=== PATIENT | female | born 1950 | race Asian ===

== ENCOUNTER 2020-09-11 08:29 | Emergency (ER) | payer OTHER ==
[2020-09-11 09:00] VITALS: TEMP 97.8; BMI 25.6
[2020-09-11] MEDS ORDERED: ACETAMINOPHEN 500 MG TABLET (FP) PO ONE (09:32)
[2020-09-11] MEDS ORDERED: ACETAMINOPHEN 500 MG TABLET (FP) ONE (09:41)
[2020-09-11 10:07] VITALS: BP 147/86; PULSE 77
[2020-09-11] MEDS ORDERED: LIDOCAINE 5% TOPICAL PATCH TP ONE (10:47)
[2020-09-11] MEDS ORDERED: METHOCARBAMOL 500 MG TABLET PO ONE (10:47)
[2020-09-11] MEDS ORDERED: LIDOCAINE 5% TOPICAL PATCH ONE (10:50)
[2020-09-11] MEDS ORDERED: METHOCARBAMOL 500 MG TABLET ONE (10:50)
[2020-09-11] MEDS ORDERED: LIDOCAINE PATCH REMOVAL MC ONE (22:00)
== END 2020-09-11 11:48 | disposition home or self-care (01) ==
LOC: JER 08:29
DX: M62.830 Muscle spasm of back (principal); M54.5 Low back pain
CPT/HCPCS: 82962; 93005; 93010; 99285-25

== ENCOUNTER 2021-10-24 16:20 | Inpatient (IN) | payer OTHER ==
[2021-10-24 17:15] VITALS: BMI 25.9
[2021-10-24] MEDS ORDERED: LACTATED RINGERS SOLUTION 1000 ML INFUS.BAG IV ONE (19:16)
[2021-10-24 20:08] LABS: BASO % 0.2 % (0-2.0); HEMATOCRIT 37.4 % (32.4-45.2); HEMOGLOBIN 12.6 GM/dL (10.7-15.3); LYMPH % 11.7 % (8-40); MCH 29.9 pg (25.7-33.7); MCHC 33.6 g/dl (32.0-36.0); MEAN CELL VOLUME 88.9 fl (80-96); MEAN PLT VOLUME 10.3 fl (7.5-11.1); MONO % 5.7 % (3.8-10.2); NEUT % 82.4 % (42.8-82.8); PLATELET COUNT 96 10^3/uL (134-434); RBC 4.21 M/mm3 (3.60-5.2); RDW 14.2 % (11.6-15.6); WHITE BLOOD COUNT 3.3 K/mm3 (4.0-10.0)
[2021-10-24 20:22] LABS: VENOUS BASE EXCESS -0.3 mmol/L (-2-2); VENOUS O2 SATURATION 44.9 % (70-80); VENOUS PCO2 38.3 mmHg (38-52); VENOUS PH 7.416 (7.310-7.410)
[2021-10-24 20:29] LABS: CHLORIDE 96 mmol/L (98-107); SODIUM 123 mmol/L (136-145)
[2021-10-24 20:32] LABS: CALCIUM 8.6 mg/dL (8.5-10.1)
[2021-10-24 20:33] LABS: ALBUMIN 3.1 g/dl (3.4-5.0); BLOOD UREA NITROGEN 15.5 mg/dL (7-18); CO2 25 mmol/L (21-32); GLUCOSE,RANDOM 192 mg/dL (74-106)
[2021-10-24 20:36] LABS: CREATININE 0.9 mg/dL (0.55-1.3); SGOT/AST 140 U/L (15-37)
[2021-10-24 20:37] LABS: BILIRUBIN,TOTAL 1.2 mg/dL (0.2-1); TOT PROT 7.7 g/dl (6.4-8.2)
[2021-10-24 20:39] LABS: ALK PHOS 166 U/L (45-117)
[2021-10-24 20:44] LABS: ANION GAP 2 MMOL/L (8-16); SGPT/ALT 81 U/L (13-61)
[2021-10-24] MEDS: SODIUM CHLORIDE 1,000 ML IV SCH (21:40)
[2021-10-24 22:03] LABS: BLOOD UREA NITROGEN 13.4 mg/dL (7-18); CALCIUM 8.2 mg/dL (8.5-10.1)
[2021-10-24 22:07] LABS: CREATININE 0.8 mg/dL (0.55-1.3)
[2021-10-24] MEDS ORDERED: POLYETHYLENE GLYCOL (HEALTHYLAX) 3350 17 GM PACKET PO PRN (23:03)
[2021-10-24] MEDS ORDERED: ACETAMINOPHEN 325 MG TABLET (FP) PO PRN (23:03)
[2021-10-25] MEDS ORDERED: morphine CARPU-JECT 2 MG/1 ML DISP.SYRIN IVPUSH PRN (05:29)
[2021-10-25] MEDS ORDERED: ACETAMINOPHEN 325 MG TABLET (FP) PO PRN (05:30)
[2021-10-25] MEDS: INSULIN SLIDING SCALE (NOVOLOG) 1 VIAL SQ SCH ×4 (06:30→21:16)
[2021-10-25] MEDS ORDERED: LEVOTHYROXINE NA 75 MCG TABLET (FP) ONE ×2 (06:32→08:10)
[2021-10-25 07:54] LABS: HEMATOCRIT 34.4 % (32.4-45.2); HEMOGLOBIN 11.5 GM/dL (10.7-15.3); MCH 29.9 pg (25.7-33.7); MCHC 33.4 g/dl (32.0-36.0); MEAN CELL VOLUME 89.6 fl (80-96); MEAN PLT VOLUME 10.1 fl (7.5-11.1); PLATELET COUNT 66 10^3/uL (134-434); RBC 3.84 M/mm3 (3.60-5.2); RDW 13.4 % (11.6-15.6); WHITE BLOOD COUNT 3.2 K/mm3 (4.0-10.0)
[2021-10-25] MEDS ORDERED: ACETAMINOPHEN 1000 MG/100 ML BAG IVPB ONE (08:00)
[2021-10-25] MEDS ORDERED: metFORMIN HCL 500 MG TABLET (FP) ONE (08:09)
[2021-10-25] MEDS ORDERED: ACETAMINOPHEN INJECTION 100 ML IVPB ONE (08:11)
[2021-10-25 08:17] LABS: ACTIVATED PTT 31.9 SECONDS (25.2-36.5)
[2021-10-25 08:18] LABS: INR 1.41 (0.83-1.09); PROTHROMBIN TIME (PATIENT) 16.3 SEC (9.7-13.0)
[2021-10-25 08:20] LABS: CALCIUM 8.1 mg/dL (8.5-10.1)
[2021-10-25 08:21] LABS: ALBUMIN 2.9 g/dl (3.4-5.0)
[2021-10-25] MEDS: metFORMIN HCL 500 MG TABLET (FP) PO SCH (08:22)
[2021-10-25] MEDS: LEVOTHYROXINE NA 150 MCG TABLET PO SCH (08:23)
[2021-10-25 08:24] LABS: CREATININE 0.9 mg/dL (0.55-1.3); PHOSPHOROUS 2.3 mg/dL (2.5-4.9)
[2021-10-25 08:25] LABS: TOT PROT 6.5 g/dl (6.4-8.2)
[2021-10-25 08:26] LABS: BILIRUBIN,TOTAL 0.8 mg/dL (0.2-1)
[2021-10-25 09:18] LABS: ANISOCYTOSIS 0; HELMET CELLS 0; HOWELL-JOLLY BODIES 0; MACROCYTOSIS 0; OVALOCYTE 0; ROULEAU 0; SICKELED CELLS 0; TARGET CELLS 0; TEAR DROP CELLS 0; TOXIC GRANULATION 0
[2021-10-25 09:33] LABS: ARTERIAL BLOOD GAS BASE EXCESS 0.6 mmol/L (-2-2); ARTERIAL BLOOD GAS PO2 58.6 mmHg (80-100); ARTERIAL BLOOD GAS pH 7.503 (7.350-7.450)
[2021-10-25 09:34] LABS: ALLENS TEST POSITIVE
[2021-10-25] MEDS ORDERED: amLODIPine BESYLATE 5 MG TABLET (FP) ONE (10:02)
[2021-10-25] MEDS ORDERED: ENOXAPARIN NA (PORCINE) 40 MG/0.4 ML DISP.SYRIN SQ ONE (10:02)
[2021-10-25 10:06] LABS: EPI CELLS 31 /uL (0-25.1); HYALINE CASTS 8 /uL (0-3.1); PH,URINE 5.5 (5.0-8.0); URINE APPEARANCE CLOUDY; URINE BACTERIA 591 /uL (0-1359); URINE BILIRUBIN 1+ (NEGATIVE); URINE COLOR DK YELLOW; URINE GLUCOSE (UA) NEGATIVE (NEGATIVE); URINE KETONE 1+ (NEGATIVE); URINE LEUK ESTERASE 2+ (NEGATIVE); URINE NITRITE NEGATIVE (NEGATIVE); URINE PROTEIN 3+ (NEGATIVE); URINE RBC 12 /uL (0-23.9); URINE WBC 229 /uL (0-25.8)
[2021-10-25] MEDS: ENOXAPARIN NA (PORCINE) 40 MG/0.4 ML DISP.SYRIN SQ SCH (10:22)
[2021-10-25] MEDS: amLODIPine BESYLATE 5 MG TABLET (FP) PO SCH (10:36)
[2021-10-25] MEDS ORDERED: CEFTRIAXONE 1 GM/50 ML BAG ONE (16:10)
[2021-10-25] MEDS: CEFTRIAXONE 1 GM in DEXTROSE 5%-WATER - 50 ML IVPB SCH (16:21)
[2021-10-25] MEDS: AZITHROMYCIN IVPB 500 MG/250 ML BAG IVPB SCH (20:50)
[2021-10-25] MEDS: SODIUM CHLORIDE 1,000 ML IV SCH (20:53)
[2021-10-25] MEDS: ATORVASTATIN CA 10 MG TABLET (FP) PO SCH (21:16)
[2021-10-25] MEDS ORDERED: DOXYCYCLINE HYCLATE 100 MG VIAL ONE (22:22)
[2021-10-25] MEDS ORDERED: DEXTROSE 5%-WATER 100 ML IVPB ONE (22:22)
[2021-10-25] MEDS: DOXYCYCLINE INJECTION 100 MG in DEXTROSE 5%-WATER 100 ML IVPB SCH (23:00)
[2021-10-26] MEDS ORDERED: ACETAMINOPHEN 1000 MG/100 ML BAG IVPB ONE (02:30)
[2021-10-26] MEDS ORDERED: ACETAMINOPHEN INJECTION 100 ML IVPB ONE (02:33)
[2021-10-26 05:59] LABS: ARTERIAL BLD GAS O2 SATURATION 98.1 % (95-98); ARTERIAL BLOOD GAS BASE EXCESS -2.6 mmol/L (-2-2); ARTERIAL BLOOD GAS PO2 103.2 mmHg (80-100); ARTERIAL BLOOD GAS pH 7.466 (7.350-7.450)
[2021-10-26 06:02] LABS: ALLENS TEST POSITIVE
[2021-10-26] MEDS ORDERED: ACETAMINOPHEN 1000 MG/100 ML BAG IVPB PRN (06:42)
[2021-10-26] MEDS: LEVOTHYROXINE NA 150 MCG TABLET PO SCH (06:47)
[2021-10-26] MEDS: INSULIN SLIDING SCALE (NOVOLOG) 1 VIAL SQ SCH ×4 (06:47→22:03)
[2021-10-26] MEDS: metFORMIN HCL 500 MG TABLET (FP) PO SCH (06:47)
[2021-10-26 08:26] LABS: HEMATOCRIT 32.1 % (32.4-45.2); HEMOGLOBIN 10.9 GM/dL (10.7-15.3); MCH 30.3 pg (25.7-33.7); MCHC 33.9 g/dl (32.0-36.0); MEAN CELL VOLUME 89.3 fl (80-96); MEAN PLT VOLUME 10.4 fl (7.5-11.1); PLATELET COUNT 64 10^3/uL (134-434); RDW 13.8 % (11.6-15.6)
[2021-10-26 08:50] LABS: CALCIUM 7.5 mg/dL (8.5-10.1)
[2021-10-26 08:51] LABS: ALBUMIN 2.5 g/dl (3.4-5.0); BLOOD UREA NITROGEN 20.3 mg/dL (7-18)
[2021-10-26 08:54] LABS: CREATININE 0.9 mg/dL (0.55-1.3)
[2021-10-26 08:56] LABS: BILIRUBIN,TOTAL 0.8 mg/dL (0.2-1); TOT PROT 6.1 g/dl (6.4-8.2)
[2021-10-26] MEDS ORDERED: DOXYCYCLINE HYCLATE 100 MG VIAL ONE ×3 (09:42→22:07)
[2021-10-26] MEDS ORDERED: DEXTROSE 5%-WATER 0 ML IVPB ONE (09:42)
[2021-10-26] MEDS ORDERED: cefTRIAXone SODIUM 1 GM VIAL ONE (09:43)
[2021-10-26 09:46] LABS: INR 1.27 (0.83-1.09); PROTHROMBIN TIME (PATIENT) 14.6 SEC (9.7-13.0)
[2021-10-26 09:48] LABS: ACTIVATED PTT 33.7 SECONDS (25.2-36.5)
[2021-10-26 09:52] LABS: ANISOCYTOSIS 0; HELMET CELLS 0; HOWELL-JOLLY BODIES 0; MACROCYTOSIS 0; OVALOCYTE 0; ROULEAU 0; SICKELED CELLS 0; TARGET CELLS 0; TEAR DROP CELLS 0; TOXIC GRANULATION 0
[2021-10-26] MEDS: amLODIPine BESYLATE 5 MG TABLET (FP) PO SCH (10:05)
[2021-10-26] MEDS: DOXYCYCLINE INJECTION 100 MG in DEXTROSE 5%-WATER 100 ML IVPB SCH ×2 (10:06→22:04)
[2021-10-26] MEDS: CEFTRIAXONE 1 GM in DEXTROSE 5%-WATER - 50 ML IVPB SCH (10:06)
[2021-10-26] MEDS: AZITHROMYCIN IVPB 500 MG/250 ML BAG IVPB SCH (10:06)
[2021-10-26] MEDS: ENOXAPARIN NA (PORCINE) 40 MG/0.4 ML DISP.SYRIN SQ SCH (10:07)
[2021-10-26] MEDS ORDERED: FUROSEMIDE 20 MG TABLET (FP) PO ONE ×2 (12:45→16:45)
[2021-10-26] MEDS ORDERED: ACETAMINOPHEN 650 MG/20.3 ML ORAL SOLUTION (CUPS) PO PRN (18:28)
[2021-10-26] MEDS ORDERED: DEXTROSE 5%-WATER 100 ML IVPB ONE ×2 (21:24→22:07)
[2021-10-26] MEDS: ATORVASTATIN CA 10 MG TABLET (FP) PO SCH (22:04)
[2021-10-27] MEDS ORDERED: FUROSEMIDE 40 MG/4 ML INJECTABLE VIAL IVPUSH ONE ×2 (00:20→12:00)
[2021-10-27] MEDS: metFORMIN HCL 500 MG TABLET (FP) PO SCH (06:01)
[2021-10-27] MEDS: LEVOTHYROXINE NA 150 MCG TABLET PO SCH (06:01)
[2021-10-27] MEDS: INSULIN SLIDING SCALE (NOVOLOG) 1 VIAL SQ SCH ×4 (06:02→21:47)
[2021-10-27 06:41] LABS: HEMATOCRIT 34.6 % (32.4-45.2); HEMOGLOBIN 11.8 GM/dL (10.7-15.3); MCH 30.6 pg (25.7-33.7); MEAN CELL VOLUME 90.1 fl (80-96); MEAN PLT VOLUME 10.3 fl (7.5-11.1); PLATELET COUNT 71 10^3/uL (134-434); RBC 3.84 M/mm3 (3.60-5.2); RDW 13.9 % (11.6-15.6); WHITE BLOOD COUNT 8.4 K/mm3 (4.0-10.0)
[2021-10-27 06:52] LABS: INR 1.09 (0.83-1.09); PROTHROMBIN TIME (PATIENT) 12.5 SEC (9.7-13.0)
[2021-10-27 07:04] LABS: ALBUMIN 2.3 g/dl (3.4-5.0)
[2021-10-27 07:07] LABS: BILIRUBIN,DIRECT 0.2 mg/dL (0.0-0.2)
[2021-10-27 07:09] LABS: BILIRUBIN,TOTAL 0.9 mg/dL (0.2-1); CALCIUM 7.9 mg/dL (8.5-10.1); TOT PROT 6.1 g/dl (6.4-8.2)
[2021-10-27 07:10] LABS: ALBUMIN 2.3 g/dl (3.4-5.0); BLOOD UREA NITROGEN 13.9 mg/dL (7-18)
[2021-10-27 07:12] LABS: CREATININE 0.7 mg/dL (0.55-1.3); URIC ACID 4.7 mg/dL (2.6-7.2)
[2021-10-27 07:14] LABS: BILIRUBIN,TOTAL 0.6 mg/dL (0.2-1)
[2021-10-27 09:32] LABS: N-TERMINAL BNP 1595.7 pg/ml (5-125)
[2021-10-27 09:33] LABS: ANISOCYTOSIS 1+; MACROCYTOSIS 0
[2021-10-27] MEDS ORDERED: DOXYCYCLINE HYCLATE 100 MG VIAL ONE (10:26)
[2021-10-27] MEDS ORDERED: DEXTROSE 5%-WATER 100 ML IVPB ONE (10:26)
[2021-10-27] MEDS ORDERED: cefTRIAXone SODIUM 1 GM VIAL ONE ×2 (10:28→10:30)
[2021-10-27] MEDS ORDERED: DEXTROSE 5%-WATER - 50 ML IVPB ONE (10:30)
[2021-10-27] MEDS: CEFTRIAXONE 1 GM in DEXTROSE 5%-WATER - 50 ML IVPB SCH ×2 (10:49→16:40)
[2021-10-27] MEDS: LACTOBACILLUS ACIDOPHILUS 1 TABLET PO SCH ×2 (10:49→21:42)
[2021-10-27] MEDS ORDERED: FUROSEMIDE 20 MG TABLET (FP) PO ONE (13:00)
[2021-10-27] MEDS: DOXYCYCLINE INJECTION 100 MG in DEXTROSE 5%-WATER 100 ML IVPB SCH (13:04)
[2021-10-27] MEDS: AZITHROMYCIN IVPB 500 MG/250 ML BAG IVPB SCH (13:09)
[2021-10-27 13:30] LABS: BF GLUCOSE (CSF ONLY) 83 mg/dL (40-70)
[2021-10-27 13:50] LABS: CSF APPEARANCE CLEAR (CLEAR); CSF COLOR COLORLESS (COLORLESS)
[2021-10-27 13:51] LABS: CSF WBC 1 mm3 (0-5)
[2021-10-27] MEDS: ATORVASTATIN CA 10 MG TABLET (FP) PO SCH (21:42)
[2021-10-28 07:18] LABS: HEMATOCRIT 36.7 % (32.4-45.2); HEMOGLOBIN 12.6 GM/dL (10.7-15.3); MCH 30.7 pg (25.7-33.7); MCHC 34.4 g/dl (32.0-36.0); MEAN CELL VOLUME 89.4 fl (80-96); MEAN PLT VOLUME 10.1 fl (7.5-11.1); PLATELET COUNT 122 10^3/uL (134-434); RBC 4.11 M/mm3 (3.60-5.2); RDW 14.2 % (11.6-15.6); WHITE BLOOD COUNT 9.1 K/mm3 (4.0-10.0)
[2021-10-28] MEDS: INSULIN SLIDING SCALE (NOVOLOG) 1 VIAL SQ SCH ×4 (07:37→22:13)
[2021-10-28] MEDS: LEVOTHYROXINE NA 150 MCG TABLET PO SCH (07:37)
[2021-10-28] MEDS: metFORMIN HCL 500 MG TABLET (FP) PO SCH (07:37)
[2021-10-28 07:38] LABS: CALCIUM 8.4 mg/dL (8.5-10.1)
[2021-10-28 07:39] LABS: BLOOD UREA NITROGEN 16.5 mg/dL (7-18)
[2021-10-28 07:42] LABS: CREATININE 0.8 mg/dL (0.55-1.3)
[2021-10-28 07:43] LABS: BILIRUBIN,TOTAL 0.6 mg/dL (0.2-1); TOT PROT 6.9 g/dl (6.4-8.2)
[2021-10-28 07:53] LABS: ALBUMIN 2.9 g/dl (3.4-5.0)
[2021-10-28 08:57] LABS: ANISOCYTOSIS 1+
[2021-10-28] MEDS ORDERED: cefTRIAXone SODIUM 1 GM VIAL ONE (09:38)
[2021-10-28] MEDS ORDERED: DEXTROSE 5%-WATER - 50 ML IVPB ONE (09:38)
[2021-10-28] MEDS: LACTOBACILLUS ACIDOPHILUS 1 TABLET PO SCH ×2 (09:40→22:13)
[2021-10-28] MEDS: CEFTRIAXONE 1 GM in DEXTROSE 5%-WATER - 50 ML IVPB SCH (09:40)
[2021-10-28] MEDS: AZITHROMYCIN IVPB 500 MG/250 ML BAG IVPB SCH (09:41)
[2021-10-28] MEDS ORDERED: POTASSIUM CHLORIDE TABS 20 MEQ TABLET.ER (FP) PO ONE (10:45)
[2021-10-28 16:08] LABS: DRVVT - 29.3 sec (0.0-47.0)
[2021-10-28] MEDS: ATORVASTATIN CA 10 MG TABLET (FP) PO SCH (22:13)
[2021-10-29] MEDS: INSULIN SLIDING SCALE (NOVOLOG) 1 VIAL SQ SCH ×4 (06:05→22:13)
[2021-10-29] MEDS: LEVOTHYROXINE NA 150 MCG TABLET PO SCH (06:06)
[2021-10-29] MEDS: metFORMIN HCL 500 MG TABLET (FP) PO SCH (06:06)
[2021-10-29] MEDS ORDERED: cefTRIAXone SODIUM 1 GM VIAL ONE (09:06)
[2021-10-29] MEDS ORDERED: DEXTROSE 5%-WATER - 50 ML IVPB ONE (09:06)
[2021-10-29] MEDS: AZITHROMYCIN IVPB 500 MG/250 ML BAG IVPB SCH (09:14)
[2021-10-29] MEDS: LACTOBACILLUS ACIDOPHILUS 1 TABLET PO SCH ×2 (09:14→22:13)
[2021-10-29] MEDS ORDERED: FUROSEMIDE 20 MG TABLET (FP) PO ONE (10:00)
[2021-10-29] MEDS ORDERED: POTASSIUM CHLORIDE TABS 10 MEQ TABLET.ER (FP) PO ONE (10:00)
[2021-10-29] MEDS ORDERED: POTASSIUM CHLORIDE TABS 20 MEQ TABLET.ER (FP) PO ONE ×2 (10:00→14:32)
[2021-10-29] MEDS: CEFTRIAXONE 1 GM in DEXTROSE 5%-WATER - 50 ML IVPB SCH (12:05)
[2021-10-29] MEDS: ATORVASTATIN CA 10 MG TABLET (FP) PO SCH (22:13)
[2021-10-30] MEDS: INSULIN SLIDING SCALE (NOVOLOG) 1 VIAL SQ SCH ×4 (06:02→21:28)
[2021-10-30] MEDS: LEVOTHYROXINE NA 150 MCG TABLET PO SCH (06:03)
[2021-10-30] MEDS: metFORMIN HCL 500 MG TABLET (FP) PO SCH (06:03)
[2021-10-30 07:40] LABS: HEMATOCRIT 33.9 % (32.4-45.2); HEMOGLOBIN 11.5 GM/dL (10.7-15.3); MCH 30.4 pg (25.7-33.7); MCHC 33.9 g/dl (32.0-36.0); MEAN CELL VOLUME 89.5 fl (80-96); MEAN PLT VOLUME 9.1 fl (7.5-11.1); PLATELET COUNT 297 10^3/uL (134-434); RBC 3.79 M/mm3 (3.60-5.2); RDW 14.2 % (11.6-15.6); WHITE BLOOD COUNT 10.7 K/mm3 (4.0-10.0)
[2021-10-30 07:56] LABS: BLOOD UREA NITROGEN 11.2 mg/dL (7-18); CALCIUM 8.7 mg/dL (8.5-10.1)
[2021-10-30 07:57] LABS: CREATININE 0.7 mg/dL (0.55-1.3)
[2021-10-30 09:04] LABS: ANISOCYTOSIS 1+; MACROCYTOSIS 0
[2021-10-30] MEDS ORDERED: cefTRIAXone SODIUM 1 GM VIAL ONE (09:58)
[2021-10-30] MEDS: LACTOBACILLUS ACIDOPHILUS 1 TABLET PO SCH ×3 (10:06→21:26)
[2021-10-30] MEDS: CEFTRIAXONE 1 GM in DEXTROSE 5%-WATER - 50 ML IVPB SCH (10:07)
[2021-10-30] MEDS: ATORVASTATIN CA 10 MG TABLET (FP) PO SCH (21:26)
[2021-10-31] MEDS: INSULIN SLIDING SCALE (NOVOLOG) 1 VIAL SQ SCH ×4 (06:03→21:03)
[2021-10-31] MEDS: metFORMIN HCL 500 MG TABLET (FP) PO SCH (06:03)
[2021-10-31] MEDS: LEVOTHYROXINE NA 150 MCG TABLET PO SCH (06:03)
[2021-10-31 08:16] LABS: HEMATOCRIT 33.9 % (32.4-45.2); HEMOGLOBIN 11.4 GM/dL (10.7-15.3); MCH 30.1 pg (25.7-33.7); MCHC 33.5 g/dl (32.0-36.0); MEAN CELL VOLUME 89.8 fl (80-96); PLATELET COUNT 401 10^3/uL (134-434); RBC 3.78 M/mm3 (3.60-5.2); RDW 14.8 % (11.6-15.6); WHITE BLOOD COUNT 11.3 K/mm3 (4.0-10.0)
[2021-10-31 08:17] LABS: MEAN PLT VOLUME 8.7 fl (7.5-11.1)
[2021-10-31 08:34] LABS: CALCIUM 8.8 mg/dL (8.5-10.1)
[2021-10-31 08:35] LABS: BLOOD UREA NITROGEN 11.1 mg/dL (7-18)
[2021-10-31 08:38] LABS: CREATININE 0.7 mg/dL (0.55-1.3)
[2021-10-31 08:44] LABS: ALBUMIN 3.2 g/dl (3.4-5.0)
[2021-10-31 08:47] LABS: BILIRUBIN,TOTAL 0.4 mg/dL (0.2-1); TOT PROT 7.6 g/dl (6.4-8.2)
[2021-10-31 08:48] LABS: BILIRUBIN,DIRECT 0.2 mg/dL (0.0-0.2)
[2021-10-31] MEDS ORDERED: cefTRIAXone SODIUM 1 GM VIAL ONE (09:06)
[2021-10-31] MEDS ORDERED: DEXTROSE 5%-WATER - 50 ML IVPB ONE (09:06)
[2021-10-31] MEDS: CEFTRIAXONE 1 GM in DEXTROSE 5%-WATER - 50 ML IVPB SCH (09:19)
[2021-10-31] MEDS: LACTOBACILLUS ACIDOPHILUS 1 TABLET PO SCH ×2 (09:21→21:03)
[2021-10-31 11:12] LABS: ANISOCYTOSIS 0; HELMET CELLS 0; HOWELL-JOLLY BODIES 0; MACROCYTOSIS 0; OVALOCYTE 0; ROULEAU 0; SICKELED CELLS 0; TARGET CELLS 0; TEAR DROP CELLS 0; TOXIC GRANULATION 0
[2021-10-31] MEDS ORDERED: SODIUM ZIRCONIUM CYCLOSILICATE (LOKELMA) 5 GM PACKET PO SCH (12:00)
[2021-10-31] MEDS: FUROSEMIDE 20 MG TABLET (FP) PO SCH (14:10)
[2021-10-31] MEDS: amLODIPine BESYLATE 5 MG TABLET (FP) PO SCH (17:51)
[2021-10-31] MEDS: AMOX TR/POT CLAV 875MG/125MG TABLETS (FP) PO SCH (17:51)
[2021-11-01] MEDS: metFORMIN HCL 500 MG TABLET (FP) PO SCH (06:04)
[2021-11-01] MEDS: LEVOTHYROXINE NA 150 MCG TABLET PO SCH (06:04)
[2021-11-01] MEDS: INSULIN SLIDING SCALE (NOVOLOG) 1 VIAL SQ SCH ×4 (06:06→21:51)
[2021-11-01 08:02] LABS: HEMATOCRIT 34.1 % (32.4-45.2); HEMOGLOBIN 11.4 GM/dL (10.7-15.3); MCH 30.2 pg (25.7-33.7); MCHC 33.5 g/dl (32.0-36.0); MEAN PLT VOLUME 8.4 fl (7.5-11.1); PLATELET COUNT 433 10^3/uL (134-434); RBC 3.79 M/mm3 (3.60-5.2); RDW 14.7 % (11.6-15.6)
[2021-11-01 08:35] LABS: BLOOD UREA NITROGEN 13.6 mg/dL (7-18); CALCIUM 9.3 mg/dL (8.5-10.1)
[2021-11-01 08:36] LABS: ALBUMIN 3.3 g/dl (3.4-5.0)
[2021-11-01 08:39] LABS: CREATININE 0.8 mg/dL (0.55-1.3)
[2021-11-01 08:40] LABS: BILIRUBIN,TOTAL 0.8 mg/dL (0.2-1); TOT PROT 7.9 g/dl (6.4-8.2)
[2021-11-01] MEDS: amLODIPine BESYLATE 5 MG TABLET (FP) PO SCH (09:41)
[2021-11-01] MEDS: AMOX TR/POT CLAV 875MG/125MG TABLETS (FP) PO SCH ×2 (09:41→17:16)
[2021-11-01] MEDS: LACTOBACILLUS ACIDOPHILUS 1 TABLET PO SCH ×2 (09:41→21:50)
[2021-11-01 09:42] LABS: ANISOCYTOSIS 1+; MACROCYTOSIS 0
[2021-11-02] MEDS: metFORMIN HCL 500 MG TABLET (FP) PO SCH (06:09)
[2021-11-02] MEDS: INSULIN SLIDING SCALE (NOVOLOG) 1 VIAL SQ SCH ×3 (06:09→16:21)
[2021-11-02] MEDS: LEVOTHYROXINE NA 150 MCG TABLET PO SCH (06:09)
[2021-11-02 07:33] LABS: BLOOD UREA NITROGEN 15.1 mg/dL (7-18); CALCIUM 9.6 mg/dL (8.5-10.1)
[2021-11-02 07:37] LABS: CREATININE 0.8 mg/dL (0.55-1.3)
[2021-11-02] MEDS: AMOX TR/POT CLAV 875MG/125MG TABLETS (FP) PO SCH ×2 (08:09→17:29)
[2021-11-02 09:44] LABS: ALBUMIN 3.5 g/dl (3.4-5.0)
[2021-11-02 09:46] LABS: BILIRUBIN,DIRECT 0.2 mg/dL (0.0-0.2)
[2021-11-02 09:48] LABS: TOT PROT 8.3 g/dl (6.4-8.2)
[2021-11-02 09:49] LABS: BILIRUBIN,TOTAL 0.5 mg/dL (0.2-1)
[2021-11-02] MEDS: amLODIPine BESYLATE 5 MG TABLET (FP) PO SCH (10:21)
[2021-11-02] MEDS: LACTOBACILLUS ACIDOPHILUS 1 TABLET PO SCH (10:21)
[2021-11-02] MEDS: FUROSEMIDE 20 MG TABLET (FP) PO SCH (12:03)
[2021-11-02 14:38] VITALS: BP 147/73; PULSE 94; TEMP 98.6
== END 2021-11-02 18:06 | disposition home or self-care (01) | DRG 864 ==
LOC: JER 16:20 → JERBED 23:05 → J4W 10-25 18:18 → OBSVTOIN 10-26 09:48 → J4W 10-26 17:47
PROVIDERS: ADMIT Hospitalist; ATTEND Internal Medicine
PROC: 009U3ZZ Drainage of Spinal Canal, Percutaneous Approach (ICD-10-PCS; principal; 2021-10-27)
DX: R50.9 Fever, unspecified (principal); E87.1 Hypo-osmolality and hyponatremia; D68.9 Coagulation defect, unspecified; J98.11 Atelectasis; N39.0 Urinary tract infection, site not specified; I10 Essential (primary) hypertension; E11.9 Type 2 diabetes mellitus without complications; E03.9 Hypothyroidism, unspecified; D69.6 Thrombocytopenia, unspecified; E78.5 Hyperlipidemia, unspecified; R26.81 Unsteadiness on feet; R41.82 Altered mental status, unspecified; D70.9 Neutropenia, unspecified; F03.90 Unspecified dementia, unspecified severity, without behavioral disturbance, psychotic disturbance, mood disturbance, and anxiety; E86.9 Volume depletion, unspecified; R94.5 Abnormal results of liver function studies; E87.5 Hyperkalemia; E86.0 Dehydration; K76.0 Fatty (change of) liver, not elsewhere classified
CPT/HCPCS: 0241U-QW; 36415; 36430; 36600; 62272; 70450-TC; 71045-TC-FY; 71250-TC; 74176-TC; 76700-TC; 80048; 80053; 80076; 81003; 82533; 82550; 82607; 82728; 82746; 82747; 82803; 82945; 82962; 82977; 83540; 83550; 83605; 83615; 83735; 83880; 83930; 84100; 84157; 84439; 84443; 84484; 84550; 85014; 85025; 85384; 85610; 85613; 85651; 85730; 85732; 86038; 86140; 86431; 86592; 86617; 86618; 86694; 86704; 86709; 86735; 86765; 86787; 86788; 86789; 86803; 86850; 86900; 86901; 87040; 87070; 87086; 87102; 87116; 87205; 87206; 87207; 87210; 87252; 87340; 87517; 87799; 87899; 93005; 93010; 93306-TC; 99285-25; G0378; P9034